=== PATIENT | male | born 2000 | race Caucasian/White ===

== ENCOUNTER 2021-06-03 00:30 | Emergency (ER) | payer OTHER ==
[~2021-06-03] VITALS: Ht 172.7 cm; Wt 81.6 kg
[2021-06-03 00:35] VITALS: BP 133/78
[2021-06-03] MEDS ORDERED: ACETAMINOPHEN EXTRA STRENGTH 500 MG TAB PO ONE (01:10)
[2021-06-03] MEDS ORDERED: ONDANSETRON 4 MG ODT PO ONE (01:10)
--- NOTE | 2021-06-03 01:11 | NUR ---
CT AT [facility]
--- NOTE | 2021-06-03 01:38 | NUR ---
PT MOVED FROM BED 5 TO BED 08.
[2021-06-03] MEDS ORDERED: levETIRAcetam 1,000 MG in NACL 0.9% 100 ML IV ONE (01:55)
[2021-06-03] MEDS ORDERED: VANCOMYCIN 1,000 MG in DEXTROSE 5% 250 ML IV ONE (01:55)
[2021-06-03] MEDS ORDERED: cefTRIAXone 2,000 MG in DEXTROSE 5% 100 ML IV ONE (02:10)
[2021-06-03] MEDS ORDERED: cefTRIAXone 2,000 MG VIAL ONE (02:12)
[2021-06-03] MEDS ORDERED: levETIRAcetam 100 MG/ML VIAL IV ONE (02:12)
[2021-06-03 02:40] VITALS: BP 133/78
--- NOTE | 2021-06-03 02:40 | NUR ---
Patient to be transferred to [facility]. Is being transferred due to BASILAR SKULL FRACTURE. Receiving facility has accepting physician and available space. ER physician has signed transfer form. Patient or responsible libertarian has agreed to transfer and signed form. Patient belongings inventoried and will be sent with patient. Copy of nursing notes, lab reports, EKG, Physicians Orders and X-rays to be sent with patient. Report called to SANDI at receiving facility. [facility] ambulance service has been called for transfer. ETA is 10.
== END 2021-06-03 02:40 | disposition short-term general hospital (02) ==
LOC: MED 00:30
DX: S02.19XA Other fracture of base of skull, initial encounter for closed fracture (principal); S06.6X9A Traumatic subarachnoid hemorrhage with loss of consciousness of unspecified duration, initial encounter; V00.131A Fall from skateboard, initial encounter; Y93.89 Activity, other specified; Y92.89 Other specified places as the place of occurrence of the external cause; Y99.8 Other external cause status; G93.89 Other specified disorders of brain
CPT/HCPCS: 70450; 71045; 72125; 96365; 96368; 99291; J0696; J1953; Q0092; Q0162